=== PATIENT | female | born 1995 | race Caucasian/White ===

== ENCOUNTER → 2023-02-05 | Outpatient (CLI) | payer OTHER ==
[2023-02-05 18:17] LABS: BUN 10 mg/dl (9-23); CHLORIDE 102 mmol/L (98-107); FREE T4 1.43 ng/dl (0.89-1.76); POTASSIUM 3.7 mmol/L (3.4-5.1); THYROID STIM HORMONE (HS) 0.873 uIU/ml (0.550-4.780)
== END | disposition home or self-care (01) ==
LOC: LAB 17:33
PROVIDERS: ATTEND Internal Medicine
DX: E28.2 Polycystic ovarian syndrome (principal); E03.9 Hypothyroidism, unspecified; E55.9 Vitamin D deficiency, unspecified

== ENCOUNTER → 2023-02-21 | Outpatient (CLI) | payer OTHER | END | disposition home or self-care (01) | LOC: LAB 08:00 | PROVIDERS: ATTEND Internal Medicine | DX: E34.9 Endocrine disorder, unspecified (principal) ==

== ENCOUNTER → 2023-08-29 | Outpatient (CLI) | payer OTHER ==
[2023-08-29 08:51] LABS: BUN 11 mg/dl (9-23); CHLORIDE 106 mmol/L (98-107); FREE T4 1.16 ng/dl (0.89-1.76)
== END | disposition home or self-care (01) ==
LOC: LAB 07:34
PROVIDERS: ATTEND Internal Medicine
DX: E55.9 Vitamin D deficiency, unspecified (principal); E03.9 Hypothyroidism, unspecified; E34.9 Endocrine disorder, unspecified; E28.2 Polycystic ovarian syndrome

== ENCOUNTER → 2024-02-06 | Outpatient (CLI) | payer OTHER ==
[2024-02-06 08:14] LABS: BUN 9 mg/dl (9-23); CHLORIDE 104 mmol/L (98-107); FREE T4 1.15 ng/dl (0.89-1.76)
== END | disposition home or self-care (01) ==
LOC: LAB 07:30
PROVIDERS: ATTEND Internal Medicine
DX: E74.39 Other disorders of intestinal carbohydrate absorption (principal); E28.2 Polycystic ovarian syndrome; E55.9 Vitamin D deficiency, unspecified; E03.9 Hypothyroidism, unspecified

== ENCOUNTER 2024-09-04 13:29 | Emergency (ER) | payer OTHER ==
[~2024-09-04] VITALS: Ht 154.9 cm; Wt 122.9 kg
[2024-09-04] MEDS ORDERED: SYNTHROID,LEV125 MCG PO (13:41)
[2024-09-04] MEDS ORDERED: PREDNISONE20 M1 PO (13:48)
[2024-09-04] MEDS ORDERED: methylPREDNISolone sod succ 125 MG VIAL IM ONE (13:50)
== END 2024-09-04 14:11 | disposition home or self-care (01) ==
LOC: ED 13:29
DX: M25.552 Pain in left hip (principal); R20.2 Paresthesia of skin; J45.909 Unspecified asthma, uncomplicated; Z91.018 Allergy to other foods; Z91.010 Allergy to peanuts

== ENCOUNTER → 2024-12-03 | Outpatient (CLI) | payer OTHER ==
[~2024-12-03] MED LIST: PREDNISONE20 M1 PO; SYNTHROID,LEV125 MCG PO
[2024-12-03 10:04] LABS: FREE T4 1.91 ng/dl (0.89-1.76)
== END | disposition home or self-care (01) ==
LOC: LAB 09:16
PROVIDERS: ATTEND Clinical Nurse Specialist
DX: E03.9 Hypothyroidism, unspecified (principal)

== ENCOUNTER → 2025-01-14 | Outpatient (CLI) | payer OTHER ==
[2025-01-14 08:37] LABS: FREE T4 1.31 ng/dl (0.89-1.76)
== END | disposition home or self-care (01) ==
LOC: LAB 07:45
PROVIDERS: Clinical Nurse Specialist; ATTEND Pediatrics
DX: E03.9 Hypothyroidism, unspecified (principal)